=== PATIENT | male | born 1970 | race Caucasian/White ===

== ENCOUNTER 2022-01-17 01:36 | Emergency (ER) | payer OTHER ==
[~2022-01-17] VITALS: Ht 172.7 cm; Wt 81.6 kg
[2022-01-17 01:37] VITALS: BP 161/101
[2022-01-17] MEDS ORDERED: IOHEXOL 350 MG/ML 100ML IJ ONE (02:04)
[2022-01-17] MEDS ORDERED: CLIN-203 PO (03:06)
[2022-01-17 03:10] LABS: Basophils # (auto) 0.1 10 ^3/uL (0-0.2); Basophils % (auto) 0.9 % (0.0-2.0); Eosinophils # (auto) 0.2 10 ^3/uL (0-0.8); Eosinophils % (auto) 1.7 % (0.0-7.0); Hematocrit 36.9 % (41.0-53.0); Hemoglobin 12.8 g/dL (13.5-17.5); Lymphocytes % (auto) 22.2 % (10.0-50.0); Mean Corpuscular Hemoglobin 31.4 pg (28.0-32.0); Mean Corpuscular Hgb Conc. 34.6 g/dL (32.0-36.0); Mean Corpuscular Volume 90.8 fL (80.0-100.0); Monocytes # (auto) 1.1 10 ^3/uL (0-1.3); Monocytes % (auto) 12.3 % (0.0-12.0); Neutrophils # (auto) 5.8 10 ^3/uL (1.6-8.6); Neutrophils % (auto) 62.9 % (37.0-80.0); Red Blood Cells 4.07 10^6/uL (4.5-5.90); White Blood Cell 9.2 10^3/uL (4.4-10.8)
[2022-01-17 03:36] LABS: Albumin 3.8 g/dL (3.4-5.0); Calcium 9.1 mg/dL (8.5-10.1); Potassium 4.1 mmol/L (3.5-5.1)
[2022-01-17 03:39] LABS: Bilirubin, Total 0.6 mg/dL (0.2-1.0); Total Protein 7.9 g/dL (6.4-8.2)
== END 2022-01-17 03:20 | disposition home or self-care (01) ==
LOC: ER 01:39
DX: L03.116 Cellulitis of left lower limb (principal); E11.9 Type 2 diabetes mellitus without complications; F17.210 Nicotine dependence, cigarettes, uncomplicated; F15.10 Other stimulant abuse, uncomplicated; Z88.0 Allergy status to penicillin; Z88.8 Allergy status to other drugs, medicaments and biological substances
CPT/HCPCS: 36415; 80053; 85025; 99283; Q9967

== ENCOUNTER → 2025-02-18 | Emergency (ER) | payer MEDICAID, OTHER ==
[~2025-02-18] MED LIST: CLIN-203 PO; CLIN150C18 PO
== END | disposition left against medical advice (07) ==
LOC: ER 13:27
DX: R39.198 Other difficulties with micturition (principal); Z53.21 Procedure and treatment not carried out due to patient leaving prior to being seen by health care provider